=== PATIENT | male | born 1985 | race Two or more races ===

== ENCOUNTER 2016-08-05 23:10 | Emergency (ER) | payer MEDICAID ==
[~2016-08-05] VITALS: Ht 177.8 cm; Wt 93.4 kg
[2016-08-06 00:03] LABS: INR 1.03 (0.9-1.15); Prothrombin Time 10.6 sec (9.37-12.3)
[2016-08-06 00:04] LABS: Albumin 3.3 g/dL (3.4-5.0); BUN/Creatinine Ratio 16.3; Calcium 8.2 mg/dL (8.5-10.1); Magnesium 1.9 mg/dL (1.6-2.6); Potassium 3.3 mmol/L (3.5-5.1)
[2016-08-06 00:07] LABS: Bilirubin, Total 0.4 mg/dL (0.2-1.0); Total Protein 8.3 g/dL (6.4-8.2)
[2016-08-06 00:21] LABS: Urine Bilirubin Negative (Negative); Urine Color Yellow (Yellow); Urine Glucose Normal (Normal); Urine Granular Cast FEW /lpf (0); Urine Nitrite Negative (Negative); Urine RBC 225 /hpf (0 - 3); Urine Urobilinogen Normal (Negative); Urine pH 8.5 (5.0-8.0)
[2016-08-06 00:27] LABS: Basophils # (auto) 0 uL; Basophils % (auto) 0.3 % (0.0-2.0); DEFINITIVE VIEW TRANSMISSION; Eosinophils # (auto) 0 uL; Eosinophils % (auto) 0.1 % (0.0-7.0); Hematocrit 35.1 % (41.0-53.0); Hemoglobin 11.1 g/dL (13.5-17.5); Lymphocytes # (auto) 1.1 uL; Lymphocytes % (auto) 10.3 % (10.0-50.0); Mean Corpuscular Hemoglobin 23.8 pg (28.0-32.0); Mean Corpuscular Hgb Conc. 31.5 g/dL (32.0-36.0); Mean Corpuscular Volume 75.6 fL (80.0-100.0); Mean Platelet Volume 8.8 fL (7.4-10.4); Monocytes # (auto) 0.3 uL; Monocytes % (auto) 2.5 % (0.0-12.0); Neutrophils % (auto) 86.8 % (37.0-80.0); Platelet Count (auto) 280 10^3/uL (140-450); SUSPECT VIEW TRANSMISSION; White Blood Cell 10.4 10^3/uL (4.4-10.8)
[2016-08-06 00:27] LABS: Urine Blood 2+ /uL (Negative); Urine Ketone 1+ (Negative)
[2016-08-06] MEDS ORDERED: PROCHLORPERAZINE EDISYLATE 5 MG/ML 2ML VIAL IV ONE (08:15)
[2016-08-06 08:32] VITALS: BP 148/80
[2016-08-06] MEDS ORDERED: POTASSIUM CHL 10% (20 MEQ/15ML) ORAL SOLN PO ONE (10:15)
== END 2016-08-06 10:11 | disposition home or self-care (01) ==
LOC: ER 23:13
DX: R11.10 Vomiting, unspecified (principal); N30.00 Acute cystitis without hematuria; R80.9 Proteinuria, unspecified; I10 Essential (primary) hypertension; E87.6 Hypokalemia; E46 Unspecified protein-calorie malnutrition; D50.9 Iron deficiency anemia, unspecified; E07.9 Disorder of thyroid, unspecified; Z88.6 Allergy status to analgesic agent; Z88.8 Allergy status to other drugs, medicaments and biological substances
CPT/HCPCS: 36415; 74176; 80053; 81001; 82150; 83690; 83735; 84443; 85025; 85049; 85610; 85730; 94761; 96374; 99285; J0780

== ENCOUNTER 2017-12-17 22:05 | Emergency (ER) | payer MEDICAID ==
[~2017-12-17] VITALS: Ht 167.6 cm; Wt 90.7 kg
[2017-12-17 22:15] VITALS: BP 141/94
[2017-12-18] MEDS ORDERED: TETRACAINE HCL 0.5% OPTH(EYE) SOLN 4ML EACHEYE ONE (02:00)
[2017-12-18] MEDS ORDERED: FLUORESCEIN SOD 1 MG TEST STRIP EACHEYE ONE (02:00)
[2017-12-18] MEDS ORDERED: GENTAMICIN SULF 0.3% OPTH(EYE) OINT 3.5GM EACHEYE ONE ×2 (02:45)
[2017-12-18] MEDS ORDERED: GENTAMICIN OPTH sol 0.3% 5ml EACHEYE ONE (02:45)
== END 2017-12-18 03:59 | disposition home or self-care (01) ==
LOC: ER 22:05
DX: H16.001 Unspecified corneal ulcer, right eye (principal); I10 Essential (primary) hypertension; E07.89 Other specified disorders of thyroid; Z88.8 Allergy status to other drugs, medicaments and biological substances
CPT/HCPCS: 99283; J7030

== ENCOUNTER 2019-10-19 17:10 | Emergency (ER) | payer SELFPAY ==
[~2019-10-19] VITALS: Ht 170.2 cm; Wt 99.8 kg
[2019-10-19 17:32] VITALS: BP 144/97
[2019-10-19] MEDS ORDERED: TETRACAINE HCL 0.5% OPTH(EYE) SOLN 4ML LEFTEYE ONE (19:00)
[2019-10-19] MEDS ORDERED: FLUORESCEIN SOD 1 MG TEST STRIP LEFTEYE ONE (19:00)
== END 2019-10-19 20:49 | disposition home or self-care (01) ==
LOC: ER 17:10
DX: T15.02XA Foreign body in cornea, left eye, initial encounter (principal); I10 Essential (primary) hypertension; X58.XXXA Exposure to other specified factors, initial encounter; Y93.89 Activity, other specified; Y92.89 Other specified places as the place of occurrence of the external cause; Y99.8 Other external cause status